=== PATIENT | female | born 1950 | race Caucasian/White ===

== ENCOUNTER → 2021-04-20 11:04 | Outpatient (BNVA) | payer MEDICARE, SELFPAY | PROVIDERS: PCP Internal Medicine; Visit Provider Surgery Vascular Surgery | DX: I71.4 Abdominal aortic aneurysm, without rupture (principal) | CPT/HCPCS: 99202 ==

== ENCOUNTER 2021-04-26 14:40 | Outpatient (REF) | payer MEDICARE, SELFPAY ==
[2021-04-26 15:39] LABS: Blood Urea Nitrogen 25 mg/dL (9-16); Estimated Glomerular Filt Rate 49
== END 2021-04-26 14:41 | disposition home or self-care (01) ==
LOC: HO.LAB 14:40
PROVIDERS: PCP Internal Medicine; Visit Provider Surgery Vascular Surgery
DX: I71.4 Abdominal aortic aneurysm, without rupture (principal)
CPT/HCPCS: 36415; 82565; 84520

== ENCOUNTER 2021-04-29 14:44 | Outpatient (REF) | payer MEDICARE, SELFPAY ==
--- NOTE | ~2021-04-29 | CT_ITS ---
EXAMINATION: CT ANGIOGRAM ABDOMEN AND PELVIS CLINICAL INFORMATION: AAA without rupture. COMPARISON: None TECHNIQUE: Multiple axial images were obtained through the abdomen and pelvis following the administration of 85 mL of Omnipaque 350 intravenous contrast. Additional 2-D coronal and sagittal reformatted images and axial 3-D maximum intensity projection MIP images are generated on the CT workstation. This CT examination was performed using dose optimization techniques as appropriate, variously including the following: *Automated exposure control *Adjustment of mA and/or kV according to patient size (this includes techniques or standardized protocols for targeted exams where dose is matched to indication/reason for exam; i.e. extremities or head) *Use of iterative reconstruction technique DLP: 256 mGy-cm FINDINGS: VASCULAR: Mild atherosclerotic plaquing present in the visualized distal descending thoracic aorta. There is an infrarenal abdominal aortic aneurysm present that ends at the iliac bifurcation. Maximal transverse dimension is 5.4 x 4.3 cm. Moderate eccentric plaque is present in the lumen. Bilateral short kissing iliac stents extend into the distal aorta. There is a segment of aorta measuring just over 1 cm below the renal arteries where there is no aortic aneurysm. The aneurysm begins just below this level with the portion containing eccentric thrombus beginning 2.7 cm inferior to the renal arteries. The kissing iliac stents are patent. The unstented distal common iliac arteries are patent. The iliac bifurcations are patent. Internal iliac arteries are patent. The external iliac arteries are free of disease. Minimal calcific plaque present in the common femoral arteries. Femoral bifurcations are widely patent with patent proximal profunda femoris and superficial femoral arteries. Celiac and SMA are both patent with mild ostial disease. The JAMIR is not patent but branches fill retrograde. There are single renal arteries bilaterally. There is mild disease at the right renal ostia. A severe stenosis is present at the origin of the left renal artery. NON-VASCULAR Lung Bases: The visualized lung bases are unremarkable. Liver, Gallbladder, and Biliary Tree: The liver is normal in size, shape, and attenuation. No focal hepatic lesion or biliary ductal dilatation is present. The gallbladder is unremarkable with no evidence of radiopaque gallstones, gallbladder wall thickening, or obvious pericholecystic inflammatory changes. Pancreas: Unremarkable. Spleen: Unremarkable. Adrenal Glands: Unremarkable. Kidneys and Ureters: The kidneys are normal in size, shape, and attenuation. Right-sided renal cysts are present, the largest of which measures 2 cm. Bilateral extrarenal pelves are present. No hydronephrosis, hydroureter, or calculi are seen. No perinephric stranding. Bladder: Empty but unremarkable. Gastrointestinal Tract: The small and large bowel is unremarkable aside from a few scattered colonic diverticula without diverticulitis. The appendix is unremarkable. Abdominal Wall: No significant hernia is appreciated. Lymph Nodes: No retroperitoneal lymphadenopathy. Pelvic Viscera: An anteverted uterus is present. An abnormal adnexal mass or free intraperitoneal fluid is not seen. Osseous Structures: Degenerative change is present in the spine. CT/CT angio abdomen pelvis IMPRESSION: 1. Infrarenal abdominal aortic aneurysm with maximal transverse dimension of 5.4 x 4.3 cm which contains thrombus. Bilateral kissing common iliac stents are patent. 2. Mild right renal artery stenosis and severe left renal artery stenosis. 3. Mild ostial celiac and SMA disease. 4. Nonvascular findings consist of right-sided renal cysts, a few colonic diverticula and degenerative changes in the spine.
[2021-04-29] MEDS: iohexoL 350 MG/ML 100 ML INFUS..BTL IV (16:04)
== END 2021-04-29 14:45 | disposition home or self-care (01) ==
LOC: HO.CT 14:44
PROVIDERS: PCP Internal Medicine; Visit Provider Surgery Vascular Surgery
DX: I71.4 Abdominal aortic aneurysm, without rupture (principal)
CPT/HCPCS: 74174; Q9967

== ENCOUNTER → 2021-05-13 13:57 | Outpatient (BNVA) | payer MEDICARE, SELFPAY | PROVIDERS: PCP Internal Medicine; Visit Provider Surgery Vascular Surgery | DX: I71.4 Abdominal aortic aneurysm, without rupture (principal); U07.0 Vaping-related disorder; F17.210 Nicotine dependence, cigarettes, uncomplicated; Z95.5 Presence of coronary angioplasty implant and graft | CPT/HCPCS: 99212 ==

== ENCOUNTER → 2021-05-17 14:02 | Outpatient (BNVA) | payer MEDICARE, SELFPAY | PROVIDERS: PCP Internal Medicine; Referring Provider Internal Medicine; Visit Provider Internal Medicine | DX: Z01.810 Encounter for preprocedural cardiovascular examination (principal); I71.4 Abdominal aortic aneurysm, without rupture; I25.10 Atherosclerotic heart disease of native coronary artery without angina pectoris | CPT/HCPCS: 93005; 99202 ==

== ENCOUNTER → 2021-05-24 07:33 | Outpatient (REF) | payer MEDICARE, SELFPAY ==
--- NOTE | ~2021-05-24 | NM_ITS ---
Lexiscan Myocardial perfusion study Indication: Preoperative cardiac evaluation Technique: The patient was brought in for a Lexiscan perfusion study on 05/24/2021 and was injected 0.4 mg of Lexiscan intravenously. Within a minute of this injection 25 mCi of sestamibi was given intravenously. Images were obtained using the SPECT gamma camera interlaced with the gating device. Images were obtained in supine position. Resting perfusion study was performed on 05/25/2021. Patient was administered 25 mCi of sestamibi intravenously at rest. Images were then obtained in supine position. Total DLP 87mGy-cm. Images were processed with the software and compared side to side in short axis, horizontal long axis and vertical long axis views. Findings: Raw acquisition was reviewed. The stress perfusion study showed no significant perfusion abnormality. Both uncorrected as well as CT attenuation corrected images were reviewed. The gated study shows normal LV systolic function with calculated LVEF of 71%. LV cavity is normal in size. The gated study shows normal wall thickening and contraction of segments. Resting study shows no significant perfusion abnormality. Gating at rest reveals normal wall motion with ejection fraction at > 70%. The findings are consistent with no reversible or fixed perfusion abnormality. NM/NM cardiolite stress test Impression: 1. Myocardial perfusion imaging study shows normal myocardial perfusion. No evidence of any ischemia or infarction. 2. Gated LVEF is >70% during stress and rest. 3. Transient ischemic dilatation not present. EKG component of the test reported separately.
--- NOTE | 2021-05-24 07:37 | CA_ITS ---
Transthoracic Echocardiogram Patient (Last, First, Middle): Sonam Hidalgo, Gender: Female Date of : 1950 Age: 70 Procedure Date: 05/24/2021 Procedure Type: Transthoracic Echocardiogram Location: OP Height: 160.02 cm Weight: 65.77 kg BSA: 1.69 m2 Heart Rate: bpm BP: 120 / 80 mmHg Lactation Specialist: Neymar MD: Christiano Adler MD Ticket Machine Operator: Noel Pantoja MD Symptoms: I25.10 - Atherosclerotic heart disease of [place] coronary... Study Quality: Fair ECG Rhythm: Sinus Conclusions: - 1. Normal LV systolic function with grade 1 diastolic dysfunction 2. Normal cardiac valvular Doppler with fibrocalcific changes noted at the base of the aortic leaflets 3. No gross pericardial effusion Findings Left Ventricle Normal left ventricular size, thickness, and systolic function. The visually estimated ejection fraction is between 60-65%. Spectral Doppler is indicative of an impaired relaxation filling pattern. E/E prime ratio is <8, consistent with normal filling pressures. Right Ventricle Normal right ventricular cavity size and systolic function. Atria The left atrium is normal in size. The right atrium is normal in size. Aortic Valve There is mild calcification of the aortic valve. There are fibrocalcifications on the aortic valve wall. There is no aortic valve stenosis. There is no aortic valve regurgitation. Mitral Valve Likely normal mitral valve structure and function. There is trace mitral valve regurgitation. There is no mitral valve stenosis. Pulmonic Valve The pulmonic valve was not well visualized. There is trace pulmonic valve regurgitation. Tricuspid Valve Likely normal tricuspid valve structure and function. Tricuspid regurgitation envelope is inadequate for calculation of right ventricular systolic pressure. Great Vessels All visible segments of the aorta are normal in size. The pulmonary artery was not well visualized. Venous The inferior vena cava is normal in size and collapses greater than 50% with inspiration. Pericardium/Pleural There is no evidence of pericardial effusion. Prior Study Comparison No prior study available for comparison. Measurements 2D Linear Measurements RVIDd: 2.50 RVIDd Index: 1.48 IVSd: 1.21 0.6-0.9/0.6-1.0 cm LVIDd: 2.85 3.9-5.3/4.2-5.9 cm LVIDd Index: 1.69 2.4-3.2/2.2-3.1 cm/m2 LVIDs: 1.95 2.0-3.6 cm LVPWd: 1.06 0.7-1.1 cm Ao Root: 2.60 2.1-3.5 cm LA Diam: 2.50 2.7-3.8/3.0-4.0 cm LAIDs Index: 1.48 1.5-2.3 cm/m2 LV Mass: 115.51 67-162/88-224 g LV Mass Index: 68.35 43-95/49-115 g/m2 LVOT Diam: 2.00 3.0+(-)1.3 cm 2D Systolic Function EF 4C: 67.30 >55% EF 2C: 58.70 >55% EF BiP: 64.30 >55% Mitral Valve MV Pk E: 0.45 MV PK A: 0.86 MV Decel Time: 243.00 E/A: 0.50 E'Lateral: 6.31 E'Medial: 5.22 E/E' Med: 8.60 E/E' Lat: 7.10 Aortic Valve AoV Pk Matthew: 1.31 AoV Mn Matthew: 0.92 AoV VTI: 0.20 AoV Pk Grad: 7.00 Aov Mn Grad: 4.00 JENIFFER Cont.VTI: 2.62 LVOT LVOT Pk Matthew: 0.89 LVOT Mn Matthew: 0.64 LVOT VTI: 0.17 LVOT Pk Grad: 3.00 LVOT Mn Grad: 2.00 LVOT Diam: 2.00 LVOT Area: 3.14 Diastolic Function MV Pk E: 0.45 MV Pk A: 0.86 E/A: 0.50 E'Medial: 5.22 E/E' Med: 8.60 E' Laterial: 6.31 E/E' Lat: 7.10 Right Ventricle TAPSE (mm): 21.00 TVS' Matthew: 10.00 Tricuspid Valve RA Press: 3.00 Great Vessels Aorta Ao Root-2D: 2.60 2.0-3.7 cm Ao Asc: 2.60 2.1-3.4 cm Ao Arch: 2.40 Updated in Other Vendor System with Status of Final Noel Pantoja MD electronically signed on 05/24/2021 12:36:26 PM with status of Final
--- NOTE | 2021-05-24 07:37 | CA_ITS ---
Acquisition Time: 2021-05-24 08:23:23 Total Exercise Time: 00:02:00 Test Indications: Screening for CAD Medications: CLOPIDOGREL ATORVASTATIN BENZAPRIL GABAPENTIN TRAMADOL CYCLOBENZAPRINE Protocol: LEXISCAN Max HR: 122 BPM 81% of Pred: 149 BPM Max BP: 136/086 mmHG Max Work Load: 1.0 METS Pharmacological stress test with Lexiscan injection, while sitting and kicking her legs, without anginal symptoms, without arrythmia, with normotensive response to injection, with nondiagnostic EKG for ischemia. In recovery she had sinus tachycardia that was treated with Aminophylline 75mg IVP to reverse Lexiscan with improvement in heart rate. Nuclear images pending. Test reviewed with Dr Pantoja. Referred By: Christiano Adler Overread By: MARIA D BUNDY
== END ==
LOC: HO.CARD 07:33
PROVIDERS: Visit Provider Internal Medicine
DX: Z01.810 Encounter for preprocedural cardiovascular examination (principal); I71.4 Abdominal aortic aneurysm, without rupture; I25.10 Atherosclerotic heart disease of native coronary artery without angina pectoris
CPT/HCPCS: 78452; 93017; 93306; A9500; J0280; J2785

== ENCOUNTER → 2021-06-09 08:38 | Outpatient (BNVA) | payer MEDICARE, SELFPAY | PROVIDERS: PCP Internal Medicine; Referring Provider Internal Medicine; Visit Provider Internal Medicine | DX: Z01.810 Encounter for preprocedural cardiovascular examination (principal); I71.4 Abdominal aortic aneurysm, without rupture; I10 Essential (primary) hypertension | CPT/HCPCS: 99212 ==

== ENCOUNTER 2021-06-14 06:15 | Inpatient (IN) | payer MEDICARE, SELFPAY ==
--- NOTE | 2021-06-07 11:56 | P.CONAN_ITS ---
Documented by User: Yesy Castro NP 06/11/21 09:36 HPI - Anesthesia Eval Consult details Narrative: 70yo F for Aortic Endovascular Repair Cardiac cleared at [facility] Chronic opioids [facility] Active Problems Active Problems: All Active Problems (Updated 05/17/21 @ 14:25 by Christiano Adler MD) Preoperative cardiovascular examination (Acute) AAA (abdominal aortic aneurysm) without rupture (Acute) Past Medical History Medical History Arthritis Back pain Hx of renal calculi Mild heartburn Subclavian artery stenosis, left Family History Family History Father No problems noted. Mother No problems noted. Family history of problems with anesthesia: No Surgical History Surgical History H/O tubal ligation Hx of colonoscopy Hx of lithotripsy Status post insertion of iliac artery stent History of Problems with Anesthesia: No Social History Social History Household Members Other:: roger 22 yrs old Are you a primary career placement services counselor to a significant other at home: No Do you presently have visiting nurse or other home services: No Patient Tobacco Use Status: Current everyday Tobacco user Tobacco use type: Smokeless Tobacco Cigarettes Per Day: 4 e-Cigarette/Vaping Use: Currently Using Patient Interested in Nicotine Replacement: Yes Use of substances other than those prescribed or required for medical reasons: No Have you been hit, kicked, punched, or otherwise hurt by someone within the past year? If so, by whom?: No Spiritual Healthcare Practices: none Synagogue Healthcare Practices: none Cultural Healthcare Practices: none Are you DNR?: No Advance Directives: No Advance Directives Information Provided: No Advance Directives on File: No Recently lost weight without trying: No Nutrition Risks: No Nutritional Risk Narrative Narrative: No recent illness No CP/SOB with grocery shopping. Limited activity d/t back pain Meds Allergies Allergy/AdvReac Type Severity Reaction Status Date / Time No Known Allergies Allergy Verified 06/14/21 06:23 Home Medications Medication Instructions Recorded Confirmed Last Taken Type atorvastatin 20 mg tablet 20 mg PO BEDTIME 04/20/21 06/09/21 Unknown History benazepril 10 mg tablet 10 mg PO BEDTIME 04/20/21 06/09/21 Unknown History clopidogrel 75 mg tablet 75 mg PO BEDTIME 04/20/21 06/09/21 06/13/21 22:00 History tramadol 50 mg tablet 100 mg PO Q6H PRN 04/20/21 06/09/21 06/14/21 05:00 History Exam Exam Date and Time: June 07, 2021 1156 Height,Weight and Vital Signs: Pulse Resp BP Pulse Ox 98 16 118/71 97 06/07/21 12:06/07/21 12:06/07/21 12:06/07/21 12:09 Narrative Narrative: EKG 04/2021 sinus rhythm at 89/Min; leftward axis; left atrial enlargement. ECHO 04/2021 Conclusions: - 1. Normal LV systolic function with grade 1 diastolic? dysfunction? 2. Normal cardiac valvular Doppler with fibrocalcific changes? ? noted at the base of the aortic leaflets ? 3. No gross pericardial effusion ? NM cardiolite stress test 04/2021 Impression: ? 1.? Myocardial perfusion imaging study shows normal myocardial perfusion. No evidence of any ischemia or infarction. 2.? Gated LVEF is >70% during stress and rest. 3. Transient ischemic dilatation not present. ? EKG component of the test reported separately.(Nondiagnostic) Airway Mallampati Class: II TM Dist: >3cm Neck ROM: Full Denture: Upper and Lower (Doesnt wear) Heart: RRR Lungs: CTAB Assessment and Plan Assessment Anesthesia Assessment: Anesthesia Plan Discussed, Smoking Cess. Discussed and PAT Visit Final Anesthetic Review Family History of Problems with Anesthesia: No History of Problems with Anesthesia: No Documented by User: Lucia Hernandez MD 06/14/21 10:20 [facility] Past Medical History Medical History Arthritis Back pain Hx of renal calculi Mild heartburn Subclavian artery stenosis, left Family History Family History Father No problems noted. Mother No problems noted. Surgical History Surgical History H/O tubal ligation Hx of colonoscopy Hx of lithotripsy Status post insertion of iliac artery stent Social History Social History Household Members Other:: roger 22 yrs old Are you a primary career placement services counselor to a significant other at home: No Do you presently have visiting nurse or other home services: No Patient Tobacco Use Status: Current everyday Tobacco user Tobacco use type: Smokeless Tobacco Cigarettes Per Day: 4 e-Cigarette/Vaping Use: Currently Using Patient Interested in Nicotine Replacement: Yes Use of substances other than those prescribed or required for medical reasons: No Have you been hit, kicked, punched, or otherwise hurt by someone within the past year? If so, by whom?: No Spiritual Healthcare Practices: none Synagogue Healthcare Practices: none Cultural Healthcare Practices: none Are you DNR?: No Advance Directives: No Advance Directives Information Provided: No Advance Directives on File: No Recently lost weight without trying: No Nutrition Risks: No Nutritional Risk Meds Allergies Allergy/AdvReac Type Severity Reaction Status Date / Time No Known Allergies Allergy Verified 06/14/21 06:23 Home Medications Medication Instructions Recorded Confirmed Last Taken Type atorvastatin 20 mg tablet 20 mg PO BEDTIME 04/20/21 06/09/21 Unknown History benazepril 10 mg tablet 10 mg PO BEDTIME 04/20/21 06/09/21 Unknown History clopidogrel 75 mg tablet 75 mg PO BEDTIME 04/20/21 06/09/21 06/13/21 22:00 History tramadol 50 mg tablet 100 mg PO Q6H PRN 04/20/21 06/09/21 06/14/21 05:00 History Exam Height,Weight and Vital Signs: Height 5 ft 4 in Weight 64.41 kg Pulse Resp BP Pulse Ox 98 16 118/71 97 06/07/21 12:09 06/07/21 12:09 06/07/21 12:09 06/07/21 12:09 Pertinent Lab Results Pertinent Lab Results: Lab Results 06/07/21 06/07/21 06/07/21 Range/Units 13:31 13:31 13:31 WBC 9.0 (4.8-10.8) X10*3/uL RBC 4.73 (4.20-5.50) X10*6/uL Hgb 14.9 (12.0-16.0) g/dl Hct 45.2 (37-47) % MCV 95.6 (80-98) fL MCH 31.5 (27.0-33.0) pg MCHC 33.0 (31.0-35.0) g/dl RDW 13.5 (11.0-16.0) % Plt Count 378 (160-400) X10*3/uL MPV 10.0 (9.4-12.3) fL Absolute Nucleated RBC 0.000 (0.0-0.012) X10*3/uL Nucleated RBC % (auto) 0.0 (0.0-0.2) /100WBC PT (9.9-13.0) SEC INR (0.9-1.1) APTT (24.1-38.0) SEC Sodium 143 (135-145) mmol/L Potassium 3.9 (3.3-5.1) mmol/L Chloride 106 (96-108) mmol/L Carbon Dioxide 27 (22-29) mmol/L Anion Gap 14 (12-20) BUN 17 H (9-16) mg/dL Creatinine 1.29 (0.5-1.4) mg/dL Estim Creat Clear Calc 34.5 Estimated GFR 41 Random Glucose 140 H (60-115) mg/dL Calcium 10.3 H (8.4-10.2) mg/dL COVID-19 (JASON) (Negative) COVID-19 Clin Com Blood Type O Positive Antibody Screen NEGATIVE 06/14/21 06/14/21 06/14/21 Range/Units 06:20 06:25 06:25 WBC 8.9 (4.8-10.8) X10*3/uL RBC 4.55 (4.20-5.50) X10*6/uL Hgb 14.4 (12.0-16.0) g/dl Hct 43.7 (37-47) % MCV 96.0 (80-98) fL MCH 31.6 (27.0-33.0) pg MCHC 33.0 (31.0-35.0) g/dl RDW 13.4 (11.0-16.0) % Plt Count 341 (160-400) X10*3/uL MPV 10.3 (9.4-12.3) fL Absolute Nucleated RBC 0.000 (0.0-0.012) X10*3/uL Nucleated RBC % (auto) 0.0 (0.0-0.2) /100WBC PT 11.4 (9.9-13.0) SEC INR 1.0 (0.9-1.1) APTT 32.4 (24.1-38.0) SEC Sodium (135-145) mmol/L Potassium (3.3-5.1) mmol/L Chloride (96-108) mmol/L Carbon Dioxide (22-29) mmol/L Anion Gap (12-20) BUN (9-16) mg/dL Creatinine (0.5-1.4) mg/dL Estim Creat Clear Calc Estimated GFR Random Glucose (60-115) mg/dL Calcium (8.4-10.2) mg/dL COVID-19 (JASON) Negative (Negative) COVID-19 Clin Com See Note Blood Type Antibody Screen 06/14/21 Range/Units 06:25 WBC (4.8-10.8) X10*3/uL RBC (4.20-5.50) X10*6/uL Hgb (12.0-16.0) g/dl Hct (37-47) % MCV (80-98) fL MCH (27.0-33.0) pg MCHC (31.0-35.0) g/dl RDW (11.0-16.0) % Plt Count (160-400) X10*3/uL MPV (9.4-12.3) fL Absolute Nucleated RBC (0.0-0.012) X10*3/uL Nucleated RBC % (auto) (0.0-0.2) /100WBC PT (9.9-13.0) SEC INR (0.9-1.1) APTT (24.1-38.0) SEC Sodium 143 (135-145) mmol/L Potassium 4.0 (3.3-5.1) mmol/L Chloride 108 (96-108) mmol/L Carbon Dioxide 25 (22-29) mmol/L Anion Gap 14 (12-20) BUN 10 (9-16) mg/dL Creatinine 1.00 (0.5-1.4) mg/dL Estim Creat Clear Calc 44.5 Estimated GFR 55 Random Glucose 112 (60-115) mg/dL Calcium 9.8 (8.4-10.2) mg/dL COVID-19 (JASON) (Negative) COVID-19 Clin Com Blood Type Antibody Screen Assessment and Plan Final Anesthetic Review NPO: Yes ASA Class: III Final Preanesthetic Review: No Changes in Pt Med Stat, Meds/Allgs Chart Reviewed, Consent Obtained/Reviewed and Anes Risks/Benef Reviewed Patient Risk: Intermediate Procedure Risk: Intermediate Assessment/Block/Sedation in SS: Assess/Block/Sedation-SS Anesthetic Plan Anesthetic Plan: GA Disposition: Standard PACU and Inp. Admit - ICU
[2021-06-07 12:09] VITALS: BP 118/71; PULSE 98; RESP 16; O2SAT 97; BMI 24.3
[2021-06-07 14:07] LABS: Hematocrit 45.2 % (37-47); Hemoglobin 14.9 g/dl (12.0-16.0); Mean Corpuscular Hemoglobin 31.5 pg (27.0-33.0); Mean Corpuscular Volume 95.6 fL (80-98); Platelet Count 378 X10*3/uL (160-400); Red Blood Count 4.73 X10*6/uL (4.20-5.50); Red Cell Distribution Width 13.5 % (11.0-16.0)
[2021-06-07 14:24] LABS: Anion Gap 14 (12-20); Blood Urea Nitrogen 17 mg/dL (9-16); Calcium 10.3 mg/dL (8.4-10.2); Carbon Dioxide 27 mmol/L (22-29); Chloride 106 mmol/L (96-108); Creatinine Clr Calc Pharmacy 34.5; Estimated Glomerular Filt Rate 41; Glucose Random 140 mg/dL (60-115); Potassium 3.9 mmol/L (3.3-5.1); Sodium 143 mmol/L (135-145)
[2021-06-14] VITALS (20 sets, daily range): BP systolic 91–162; BP diastolic 45–97; PULSE 67–97; RESP 9–18; TEMP 35.9–37.1; O2SAT 90–100
--- NOTE | ~2021-06-14 | FL_ITS ---
EXAMINATION: XR FLUOROSCOPY WITH IMAGES CLINICAL INFORMATION: Abdominal aortic aneurysm. COMPARISON: Previous CTA of the abdomen and pelvis April 2021. TECHNIQUE: Fluoroscopy performed by Dr. Beltran. Fluoroscopy time: 34 minutes DAP: 79 mGycm2 Images: 34 FINDINGS: Images demonstrate placement of aortic and biiliac stent grafts. FL/FL guidance in OR IMPRESSION: Intraoperative fluoroscopy guidance for aortobiiliac stent graft placement.
[2021-06-14 06:31] LABS: Hematocrit 43.7 % (37-47); Hemoglobin 14.4 g/dl (12.0-16.0); Mean Corpuscular Hemoglobin 31.6 pg (27.0-33.0); Mean Platelet Volume 10.3 fL (9.4-12.3); Platelet Count 341 X10*3/uL (160-400); Red Blood Count 4.55 X10*6/uL (4.20-5.50); Red Cell Distribution Width 13.4 % (11.0-16.0); White Blood Count 8.9 X10*3/uL (4.8-10.8)
[2021-06-14 06:38] LABS: Prothrombin Time 11.4 SEC (9.9-13.0)
[2021-06-14 06:41] LABS: Partial Thromboplastin Time 32.4 SEC (24.1-38.0)
[2021-06-14 06:46] LABS: Anion Gap 14 (12-20); Blood Urea Nitrogen 10 mg/dL (9-16); Calcium 9.8 mg/dL (8.4-10.2); Carbon Dioxide 25 mmol/L (22-29); Chloride 108 mmol/L (96-108); Creatinine Clr Calc Pharmacy 44.5; Estimated Glomerular Filt Rate 55; Glucose Random 112 mg/dL (60-115); Sodium 143 mmol/L (135-145)
[2021-06-14 06:47] LABS: COVID-19 Test Negative (Negative)
[2021-06-14] MEDS: Lactated Ringers 1,000 ML 100 ML IVCONT (06:48)
--- NOTE | 2021-06-14 07:36 | MHC.SHP ---
Pre-Procedural Eval Section A Date of Service: 06/14/21 The patient is an INPATIENT: No The History & Physical has been completed within 30 days and I have reviewed it.: Yes Section B Chief Complaint: Post op Allergies: Allergies Allergy/AdvReac Type Severity Reaction Status Date / Time No Known Allergies Allergy Verified 06/14/21 06:23 Plan I have reviewed the history and physical and performed a pertinent physical examination on my patient. No changes have occurred unless specified.
[2021-06-14] MEDS: ceFAZolin Sodium/Dextrose,Iso 2 GM/50 ML PIGGYBACK IV ×2 (08:08→14:02)
[2021-06-14] MEDS: 0.9 % Sodium Chloride 1,000 ML 80 ML IVCONT ×2 (13:49→23:15)
--- NOTE | 2021-06-14 14:15 | W.PM.OPN ---
Operative Note Operative Note Date of Service: 06/14/21 Narrative: Operative note by [facility] Preoperative diagnosis: Abdominal aortic aneurysm Postoperative diagnosis: Same Procedure:1. Ultrasound-guided right common femoral access 2. Left common femoral cutdown 3. Plasty of bilateral iliac arteries 4. Repair of abdominal aortic aneurysm with Endologix AFX graft 5. StarClose closure device Surgeon:Bay Beltran M.D. Java Application Developer: Jean Carlos Cabrera MD Anesthesia: General Specimens: None Drains: None Estimated blood loss: 300 mL with 225 given back in Cell Saver Indications: 70-year-old female with a 5.2 cm abdominal aortic aneurysm was confirmed on CT scan. Of note she has prior bilateral iliac stent placement. She wished to proceed with endovascular repair of this abdominal aortic aneurysm. The patient has signed the informed consent after reviewing risks, complications, benefits, and alternatives previously discussed with the patient. The patient was given the opportunity to ask any additional questions or voice any concerns. All questions were answered to the patient's satisfaction. Procedure in detail: Patient was brought to the operating room prior to which a time-out was called for patient identification and site verification. Once at antibiotics and general anesthesia was induced. We 1st started with ultrasound guidance of the right common femoral artery. This was accessed in a standard technique with needle puncture an subsequent Bentson wire. We then inserted a 7 Lebanese sheath. We then turned our attention to the left side where a cutdown was performed once again using standard technique. We isolated the common femoral artery with silastic loops. We inserted a needle Bentson wire and subsequently a 7 Lebanese sheath. At this time 5000 units of systemic heparin was administered. Angiogram was performed to measure the vessel length and characterize the anatomy and its topography. Both sides were pre-dilated using a 3DR [employer] 8 x 40 stiff balloon. We had to pre dilate both iliac arteries where there were prior stents. Once this was accomplished we exchanged the left side over an a angle glide cath to a Lunderquist wire. We loaded the FELICIANO 25-70/I16-30 AFX2 bifurcated device onto the stiff wire and advanced the contralateral wire through the 19 Lebanese OD affects introducer sheath using a guidewire. Contralateral wire was snared and pulled out the contra side which was the right side. FX 2 bifurcated device was then transferred into the FX introducer sheath and advanced under fluoro guidance until the distal limbs were above the aortic bifurcation releasing the limbs of the graft. We pulled down the entire system down to the aortic bifurcation. We deployed the main body of the graft and pulling the control cord handle. We deployed the contralateral limb by pulling the yellow limb cover then advancing a pigtail over the contra wire until the tip was in contact with the wire lock. We held the pigtail catheter and placed and pull the Contra wire to release it from the wire lock. We deployed the its he limb by pinning the inner core and retracting the a FX introducer sheath. We advanced and deployed a super renal extension a 28-28/[id number] endograft and performed to visualize the renal arteries. Once this was all accomplished we then plasty did bilateral iliac arteries with an 8 x 40 balloon. Performed a final angiogram remove catheter wire sheath. Right side was closed with a StarClose closure device. Left side was closed using 6 0 Prolene suture in a running manner. We then closed the cutdown with 2 0 poly Sorb then 3-0 poly Sorb and finally skin with a 4-0 Monocryl. Dermabond was used as dressing. At the end of the case sponge instrument counts were correct. Patient had bilateral DP signals at the conclusion of the case. Interpretation of films: 1. Initial angio demonstrated the abdominal aortic aneurysm with bilateral iliac stents. 2. Conclusion angiogram demonstrated appropriate placement of endograft. No evidence of significant endoleaks, type I or type II . Good flow through bilateral iliac arteries. Conclusion: Successful placement of Endologix AFX2 aortic endograft. This note is constructed using voice recognition software. While every effort has been made to ensure accuracy, quality analyst/technical writer errors may have been included. Thank you for allowing me to participate in the care of your patient. Yours sincerely, Bay Beltran MD, FACS, R.P.V.I.
--- NOTE | 2021-06-14 14:24 | P.HPCC_ITS ---
History of Present Illness Date of Service: 06/14/21 Attending physician on admission: Bay Beltran Mrs. Hidalgo was admitted to the ICU this afternoon after an elective endograft abdominal aortic aneurysm repair by Dr. Beltran. The patient is a 70-year-old woman with a history of smoking and peripheral vascular disease.? She did stop smoking.? She has a history of a subclavian stent many years ago, and more recently bilateral iliac artery stents by Dr. Beltran a few years ago.? She has not had any claudication. She had an abdominal CT as part of a workup for back pain recently, which led to the diagnosis of an abdominal aortic aneurysm.? That was confirmed by an aortogram, which also showed mild right renal artery stenosis, and severe left renal artery stenosis.? She also has mild ostial celiac and SMA disease.? The abdominal aortic aneurysm measured 5.4 x 4.3 cm, containing thrombus.? The common iliac artery stents were patent. Preop workup included: Echo:? Showed normal LV systolic function with grade 1 diastolic dysfunction; normal right ventricular cavity size and function; normal biatrial size; normal valvular Dopplers; and normal IVC with normal inspiratory collapse. Pharmacological stress test was unremarkable. Nuclear medicine stress test showed no reversible or fixed perfusion abnormalities. INTRAOP:? Unremarkable GETA and unremarkable surgical course.? Cutdown on left groin, needlestick on right side.? Minimal EBL, retransfused with cell saver.? Extubated at end, recovery room, then admitted to ICU. On exam in the ICU, the patient is fully awake, breathing and talking easily.? Heart rate is 78, blood pressure is 115/61, sat is 96-98% on room air, and she is normothermic.? No jugular venous distention with the head of the bed at 30-40 degrees.? She has no peripheral edema.? I examined both groins with Dr. Beltran.? The left side has about a 1.5 x 4? not prominent hematoma.? The area was m arked.? The right groin has almost nothing palpable.? Pulses are palpable in both feet.? The left foot is slightly warmer than the right. LABORATORY DATA:? Preop labs from this morning as noted below.? BUN and creatinine were 10/1.0. IMPRESSION: ?70-year-old woman, status post successful elective endograft abdominal aortic aneurysm repair. Admit for overnight hemodynamic and vascular monitoring.? Follow-up per Dr. Beltran. FORMERLY [facility] Past Medical History Medical History Arthritis Back pain Hx of renal calculi Mild heartburn Subclavian artery stenosis, left Family History Family History Father No problems noted. Mother No problems noted. Surgical History Surgical History H/O tubal ligation Hx of colonoscopy Hx of lithotripsy Status post insertion of iliac artery stent Social History Social History Household Members: Children Household Members Other:: roger 22 yrs old Housing: House Are you a primary laboratory animal care veterinarian to a significant other at home: No Do you presently have visiting nurse or other home services: No Patient Tobacco Use Status: Current everyday Tobacco user Tobacco use type: Smokeless Tobacco Cigarettes Per Day: 4 e-Cigarette/Vaping Use: Currently Using Patient Interested in Nicotine Replacement: Yes Use of substances other than those prescribed or required for medical reasons: No Have you been hit, kicked, punched, or otherwise hurt by someone within the past year? If so, by whom?: No Do you feel safe in your current relationship?: No Current Relationship Is there a partner from a previous relationship who is making you feel unsafe now?: No Are you made to feel afraid or neglected: No Spiritual Healthcare Practices: none Cheondoism Healthcare Practices: none Cultural Healthcare Practices: none Are you DNR?: No Advance Directives: No Advance Directives Information Provided: No Advance Directives on File: No Do you have thoughts of harming others: None Recently lost weight without trying: No Nutrition Risks: No Nutritional Risk Meds Allergies Allergy/AdvReac Type Severity Reaction Status Date / Time No Known Allergies Allergy Verified 06/14/21 06:23 Active Medications: Current Medications Acetaminophen (Acetaminophen 325 Mg Tablet) 650 mg PO Q6H PRN PRN Reason: Pain, Mild (Pain Scale 1-3) Atorvastatin Calcium (Atorvastatin Calcium 20 Mg Tablet) 20 mg PO BEDTIME TIFFANY Clopidogrel Bisulfate (Clopidogrel Bisulfate 75 Mg Tablet) 75 mg PO BEDTIME TIFFANY Sodium Chloride (Ns) 1,000 mls @ 80 mls/hr IVCONT .[id number] TIFFANY Last Admin: 06/14/21 13:49 Dose: 80 mls/hr Documented by: Cefazolin Sodium/Dextrose (Ancef) 2 gm in 50 mls @ 100 mls/hr IV POSTOP@1400 ONE Stop: 06/14/21 14:29 Last Admin: 06/14/21 14:02 Dose: 100 mls/hr Documented by: Morphine Sulfate (Morphine Sulfate 2 Mg/Ml Cartridge) 2 mg IVPUSH Q4H PRN; Protocol PRN Reason: Pain, Severe (Pain Scale 7-10) Oxycodone HCl (Oxycodone Hcl Immed Release 5 Mg Tablet) 5 mg PO Q4H PRN PRN Reason: Pain, Moderate (Pain Scale 4-6 Sodium Chloride (0.9 % Sodium Chloride Flush 3 Ml Syringe) 3 ml IVFLUSH QSHIFT TIFFANY Tramadol HCl (Tramadol Hcl 50 Mg Tablet) 100 mg PO Q6H PRN PRN Reason: Back Pain Home Medications Medication Instructions Recorded Confirmed Last Taken Type atorvastatin 20 mg tablet 20 mg PO BEDTIME 04/20/21 06/09/21 Unknown History benazepril 10 mg tablet 10 mg PO BEDTIME 04/20/21 06/09/21 Unknown History clopidogrel 75 mg tablet 75 mg PO BEDTIME 04/20/21 06/09/21 06/13/21 22:00 History tramadol 50 mg tablet 100 mg PO Q6H PRN 04/20/21 06/09/21 06/14/21 05:00 History Physical Exam Vital Signs: Vital Signs: Last Vital Signs Temp 97.3 F 06/14/21 11:51 Pulse 78 06/14/21 14:00 Resp 9 L 06/14/21 14:00 BP 115/61 06/14/21 14:00 Pulse Ox 90 L 06/14/21 14:00 Body Mass Index 24.3 Results Labs CBC and Chem 7: 06/14/21 06:25 06/14/21 06:25 Labs: Laboratory Results - last 24 hr 06/14/21 06/14/21 06/14/21 06:20 06:25 06:25 MCV 96.0 MCH 31.6 MCHC 33.0 RDW 13.4 Plt Count 341 MPV 10.3 Absolute Nucleated RBC 0.000 Nucleated RBC % (auto) 0.0 PT 11.4 INR 1.0 APTT 32.4 Anion Gap Estim Creat Clear Calc Estimated GFR Random Glucose Calcium COVID-19 (JASON) Negative COVID-19 Clin Com See Note 06/14/21 06:25 MCV MCH MCHC RDW Plt Count MPV Absolute Nucleated RBC Nucleated RBC % (auto) PT INR APTT Anion Gap 14 Estim Creat Clear Calc 44.5 Estimated GFR 55 Random Glucose 112 Calcium 9.8 COVID-19 (JASON) COVID-19 Clin Com
[2021-06-14] MEDS: 0.9 % Sodium Chloride Flush 3 ML SYRINGE IVFLUSH (17:00)
[2021-06-14] MEDS: Atorvastatin Calcium 20 MG TABLET PO (20:13)
[2021-06-14] MEDS: traMADoL HCL 50 MG TABLET 100 MG PO (20:14)
[2021-06-14] MEDS: Clopidogrel Bisulfate 75 MG TABLET PO (20:14)
[2021-06-15] VITALS (14 sets, daily range): BP systolic 94–123; BP diastolic 46–66; PULSE 68–92; RESP 12–16; TEMP 36.3–37.2; O2SAT 91–99; BMI 24.2
[2021-06-15 05:40] LABS: MANUAL DIFF FLAG NO
[2021-06-15 05:43] LABS: Basophils Percent Auto 0.1 % (0-2); Hematocrit 30.1 % (37-47); Imm Gran Abs Auto 0.03 X10*3/uL (0.00-0.03); Imm Gran Pct Auto 0.3 % (0.0-0.4); Lymphocytes Absolute Auto 0.9 X10*3/uL (1.2-4.9); Lymphocytes Percent Auto 7.7 % (20-40); Mean Corpuscular HGB Conc 33.2 g/dl (31.0-35.0); Mean Corpuscular Hemoglobin 31.9 pg (27.0-33.0); Mean Corpuscular Volume 96.2 fL (80-98); Mean Platelet Volume 10.6 fL (9.4-12.3); Monocytes Absolute Auto 0.8 X10*3/uL (0.1-1.2); Monocytes Percent Auto 6.9 % (2-11); Neutrophils Absolute Auto 9.9 X10*3/uL (2.0-8.3); Platelet Count 232 X10*3/uL (160-400); Red Blood Count 3.13 X10*6/uL (4.20-5.50); Red Cell Distribution Width 13.7 % (11.0-16.0); White Blood Count 11.6 X10*3/uL (4.8-10.8)
[2021-06-15 06:06] LABS: Anion Gap 10 (12-20); Blood Urea Nitrogen 17 mg/dL (9-16); Calcium 8.6 mg/dL (8.4-10.2); Carbon Dioxide 25 mmol/L (22-29); Chloride 111 mmol/L (96-108); Creatinine Clr Calc Pharmacy 46.8; Estimated Glomerular Filt Rate 58; Glucose Random 139 mg/dL (60-115); Potassium 4.3 mmol/L (3.3-5.1); Sodium 142 mmol/L (135-145)
[2021-06-15] MEDS: 0.9 % Sodium Chloride Flush 3 ML SYRINGE IVFLUSH (07:39)
--- NOTE | 2021-06-15 10:02 | MHC.CM.PN ---
Met with pt to discuss d/c planning: pt resides with her granddtr who assists her with ADL's and transportation. Pt has no services and states she is fairly independent with most care needs. Surgical site is KRISTAN, well approximated and shows no signs of complications. Pt declines VNA services at this time and will f/u with MD / surgeon as an outpt. Family to transport home: HCP copy requested, IMM completed.
--- NOTE | 2021-06-15 10:41 | HO.POSTANES ---
Post Anesthesia Evaluation Post Anesthesia Evaluation Vital Signs: Vital Signs Temp Pulse Resp BP Pulse Ox 06/15/21 10:00 89 15 103/49 L 94 06/15/21 09:00 72 13 110/50 L 99 06/15/21 08:00 97.3 F 73 13 118/50 L 92 06/15/21 07:00 68 12 99/46 L 93 06/15/21 06:00 72 12 98/50 L 94 06/15/21 05:00 75 12 96/52 L 92 06/15/21 04:00 80 13 111/55 L 94 06/15/21 03:00 79 13 118/54 L 94 06/15/21 02:00 83 16 94/52 L 92 06/15/21 01:00 77 14 101/53 L 92 06/15/21 00:00 73 13 112/51 L 97 06/14/21 23:18 98.7 F 94 06/14/21 23:00 77 12 91/45 L 94 Anesthesia: General Endotracheal-GETA Mental Status: Awake Pain Control: Satisfactory Nausea/Vomiting: None Hydration: Adequate Anesthesia-Related Issues: No Anes. Related Issues
--- NOTE | 2021-06-15 13:00 | PM.DS ---
DS: Providers Provider Date of Service: 06/15/21 Date of admission: 06/14/21 06:15 Primary care physician: Deven Salazar MD DS: Summary Hospital Course Hospital Course: Patient was admitted on 06/14/2021 and underwent elective endovascular aortic aneurysm repair. of note she had prior iliac stents. She underwent repair with an Endologix AFX2 device. She had an excellent result. She was observed in our ICU overnight. Postop day 1 she was tolerating a diet voiding freely, ambulating and had minimal pain. She was subsequently discharged. Time Spent with Patient Time attestation: Total time spent providing and/or coordinating discharge services: Discharge coordination time: Greater than 30 minutes Quality: Stroke Does the patient have a stroke diagnosis?: No Physical Exam Vital Signs: Vital Signs: Last Vital Signs Temp 99.0 F 06/15/21 12:00 Pulse 92 06/15/21 12:00 Resp 16 06/15/21 12:00 BP 123/66 06/15/21 12:00 Pulse Ox 92 06/15/21 12:00 Oxygen Flow Rate 2 06/14/21 23:18 Body Mass Index 24.2 DS: Data Data Completed and Pending Completed studies during hospitalization [Text1]: Pending at discharge 06/14/21 10:14 Surgical [PTH] Routine Labs on day of discharge: Laboratory Results - last 24 hr 06/15/21 06/15/21 05:12 05:12 WBC 11.6 H RBC 3.13 L D Hgb 10.0 L D Hct 30.1 L D MCV 96.2 MCH 31.9 MCHC 33.2 RDW 13.7 Plt Count 232 D MPV 10.6 Immature Gran % (Auto) 0.3 Neut % (Auto) 85.0 H Lymph % (Auto) 7.7 L Finney % (Auto) 6.9 Eos % (Auto) 0.0 Baso % (Auto) 0.1 Lymph # (Auto) 0.9 L Finney # (Auto) 0.8 Eos # (Auto) 0.0 Baso # (Auto) 0.0 Abs Immat Gran (auto) 0.03 Absolute Neuts (auto) 9.9 H Absolute Nucleated RBC 0.000 Nucleated RBC % (auto) 0.0 Sodium 142 Potassium 4.3 Chloride 111 H Carbon Dioxide 25 Anion Gap 10 L BUN 17 H D Creatinine 0.95 Estim Creat Clear Calc 46.8 Estimated GFR 58 Random Glucose 139 H Calcium 8.6 D Discharge Plan Discharge Patient Disposition: Home, Self-Care Discharge Diagnosis: Abdominal aortic aneurysm Referrals: Deven Salazar MD [Primary Care Provider] - 1 Week Discharge Medications: New oxycodone-acetaminophen [Percocet] 5-325 mg tablet 1 tab PO Q6H PRN (Reason: pain) Qty: 14 RF: 0 Continued atorvastatin 20 mg tablet 20 mg PO BEDTIME RF: 0 tramadol 50 mg tablet 100 mg PO Q6H PRN (Reason: Back Pain) RF: 0 benazepril 10 mg tablet 10 mg PO BEDTIME RF: 0 clopidogrel 75 mg tablet 75 mg PO BEDTIME RF: 0 Discharge Orders: Discharge Order (Routine); Ordered 06/15/21 Ordered By: Bay Beltran Diet: advance to usual diet Activity on Discharge: As tolerated Stand Alone Forms: Patient Portal Discharge page Activity Restrictions/Additional Instructions: Skin glue was used on your incisions and you may shower as early as tomorrow. Take it easy today and you may ambulate around the house. Within 24 hours you can resume normal activity You may climb a flight of stairs as tolerated Do not lift anything heavier than a gallon of milk for [address] Beltran in follow-up in approximately 2 weeks time. You should already have an appointment if not please call my office at [phone] Please see above for any change in medications If you notice excessive bleeding from the groin please immediately call my office or return to the emergency room. Care Plan Goals: Prevent aortic rupture Health Concerns: Abdominal aortic aneurysm Plan of Treatment: Status post repair and will require routine follow-up Assessment: Abdominal aortic aneurysm
--- NOTE | 2021-06-15 13:51 | MHC.CM.PN ---
Pt to be discharged to home with outpt followup - pt will call her granddtr or son for transportation home: No further services required
== END 2021-06-15 13:51 | disposition home or self-care (01) | DRG 269 ==
LOC: HO.SSSA 06:16 → HO.ICU 11:09
PROVIDERS: Nurse Practitioner; Admitting Provider Surgery Vascular Surgery; PCP Internal Medicine; Visit Provider Surgery Vascular Surgery
PROC: 04V03ZZ Restriction of Abdominal Aorta, Percutaneous Approach (ICD-10-PCS; principal; 2021-06-14 07:30)
DX: I71.4 Abdominal aortic aneurysm, without rupture (principal); Z87.442 Personal history of urinary calculi; Z20.822 Contact with and (suspected) exposure to COVID-19; F17.210 Nicotine dependence, cigarettes, uncomplicated; Z71.6 Tobacco abuse counseling; Z79.02 Long term (current) use of antithrombotics/antiplatelets; Z79.899 Other long term (current) drug therapy
CPT/HCPCS: 36415; 80048; 85025; 85027; 85610; 85730; 86850; 86900; 86901; 87635; 88305; C1768; C1769; J0690; J1100; J1170; J2250; J2370; J2405; J3010; Q9967

== ENCOUNTER → 2021-06-29 13:08 | Outpatient (BNVA) | payer MEDICARE, SELFPAY | PROVIDERS: PCP Internal Medicine; Visit Provider Surgery Vascular Surgery | DX: I71.4 Abdominal aortic aneurysm, without rupture (principal) | CPT/HCPCS: 99212 ==

== ENCOUNTER 2021-09-28 12:44 | Outpatient (REF) | payer MEDICARE, SELFPAY ==
[2021-09-28 14:23] LABS: Blood Urea Nitrogen 10 mg/dL (9-16); Estimated Glomerular Filt Rate 55
== END 2021-09-28 12:45 | disposition home or self-care (01) ==
LOC: HO.LAB 12:44
PROVIDERS: PCP Internal Medicine; Visit Provider Surgery Vascular Surgery
DX: I71.4 Abdominal aortic aneurysm, without rupture (principal)
CPT/HCPCS: 36415; 82565; 84520

== ENCOUNTER 2021-09-30 14:02 | Outpatient (REF) | payer MEDICARE, SELFPAY ==
--- NOTE | ~2021-09-30 | CT_ITS ---
EXAMINATION: CT ANGIOGRAM ABDOMEN AND PELVIS CLINICAL INFORMATION: Abdominal aortic aneurysm without rupture. COMPARISON: 04/29/2021 TECHNIQUE: Multiple axial images were obtained through the abdomen and pelvis following the administration of 65 mL of Omnipaque 350 intravenous contrast. Images were reviewed on a dedicated 3-D workstation. This CT examination was performed using dose optimization techniques as appropriate, variously including the following: *Automated exposure control *Adjustment of mA and/or kV according to patient size (this includes techniques or standardized protocols for targeted exams where dose is matched to indication/reason for exam; i.e. extremities or head) *Use of iterative reconstruction technique DLP: 224 mGy-cm FINDINGS: VASCULAR: There is atherosclerotic plaque in the descending thoracic aorta. The patient is now status post endovascular repair of the infrarenal abdominal aortic aneurysm. The excluded aneurysm sac measures approximately 4.7 x 3.9 cm. This is decreased from prior when it measured 5.2 x 3.7 cm measured at a similar level. Limited evaluation for endoleak as this was performed only with contrast, no clear evidence for endoleak. The iliac limbs are quite narrow but do appear to be patent. There are 2 separate short segment nonflow limiting dissections in the right common iliac artery (428 and 436/747). The external iliac arteries are patent. The common femoral arteries and visualized proximal SFA and profunda femoral arteries are patent. The fenestrated portion of the stent graft begins just below the takeoff of the celiac artery. The SMA is patent. The renal arteries are patent with left greater than right narrowing at the ostia. The kidneys do enhance symmetrically. NONVASCULAR: Lung Bases: Atelectasis in the lung bases. Liver, Gallbladder, and Biliary Tree: The liver is normal in size, shape, and attenuation. No focal hepatic lesion or biliary ductal dilatation is present. The gallbladder is unremarkable with no evidence of radiopaque gallstones, gallbladder wall thickening, or obvious pericholecystic inflammatory changes. Pancreas: Unremarkable Spleen: Unremarkable Adrenal Glands: Unremarkable Kidneys and Ureters: Kidneys enhance symmetrically. Right-sided renal cysts which do not require imaging followup. There is no hydronephrosis and no renal calculi. Bladder: Partially distended bladder is unremarkable. Gastrointestinal Tract: A few scattered colonic diverticuli without diverticulitis. No bowel obstruction. Normal appendix. Small hiatal hernia. Abdominal Wall: Postsurgical changes in the left inguinal region. Lymph Nodes: Normal Pelvic Viscera: The uterus and adnexa are unremarkable. Osseous Structures: Scoliotic curvature in the thoracolumbar spine. Degenerative changes. No destructive bony lesions. CT/CT angio abdomen pelvis IMPRESSION: Status post endovascular repair of the infrarenal abdominal aortic aneurysm. No clear evidence for endoleak. The excluded sac has decreased in size from the preprocedure exam. The iliac limbs are quite small but patent. There are 2 short segment, nonflow limiting focal dissections in the right common iliac artery distal to the iliac limb.
[2021-09-30] MEDS: iohexoL 350 MG/ML 100 ML INFUS..BTL IV (15:12)
== END 2021-09-30 14:03 | disposition home or self-care (01) ==
LOC: HO.CT 14:02
PROVIDERS: PCP Internal Medicine; Visit Provider Surgery Vascular Surgery
DX: I71.4 Abdominal aortic aneurysm, without rupture (principal)
CPT/HCPCS: 74174; Q9967

== ENCOUNTER → 2021-10-12 13:45 | Outpatient (BNVA) | payer MEDICARE, SELFPAY | PROVIDERS: PCP Internal Medicine; Visit Provider Surgery Vascular Surgery | DX: Z48.812 Encounter for surgical aftercare following surgery on the circulatory system (principal); I71.4 Abdominal aortic aneurysm, without rupture | CPT/HCPCS: 99212 ==

== ENCOUNTER 2022-04-07 11:19 | Outpatient (REF) | payer MEDICARE, SELFPAY ==
[2022-04-07 12:27] LABS: Blood Urea Nitrogen 13 mg/dL (9-16); Estimated Glomerular Filt Rate 46
== END 2022-04-07 11:20 | disposition home or self-care (01) ==
LOC: HO.LAB 11:19
PROVIDERS: PCP Internal Medicine; Visit Provider Surgery Vascular Surgery
DX: I71.4 Abdominal aortic aneurysm, without rupture (principal)
CPT/HCPCS: 36415; 82565; 84520

== ENCOUNTER 2022-04-18 09:22 | Outpatient (REF) | payer MEDICARE, SELFPAY ==
--- NOTE | ~2022-04-18 | CT_ITS ---
EXAMINATION: CT ANGIOGRAM ABDOMEN AND PELVIS CLINICAL INFORMATION: Abdominal aneurysm. Followup. COMPARISON: CT abdomen/pelvis 09/30/2021. TECHNIQUE: Multiple axial images were obtained through the abdomen and pelvis following the administration of 100 mL of Omnipaque 350 intravenous contrast. Images were reviewed on a dedicated 3-D workstation. This CT examination was performed using dose optimization techniques as appropriate, variously including the following: *Automated exposure control *Adjustment of mA and/or kV according to patient size (this includes techniques or standardized protocols for targeted exams where dose is matched to indication/reason for exam; i.e. extremities or head) *Use of iterative reconstruction technique DLP: 233 mGy-cm FINDINGS: VASCULAR: There is an aortic graft stent from the mid abdominal aorta to the mid common iliac arteries. There is a widely patent mid and distal abdominal aorta with minimal intimal thickening or circumferential thrombus within the stent margins. The common and external iliac arteries are widely patent but slightly small in caliber except for a known aortic dissection or stenosis in the right common iliac artery on sagittal image 98/10. A second area of probable small dissection is seen in mid right common iliac artery on axial image 427/9. The proximal abdominal aorta is of normal caliber. Origins of celiac artery is patent. The SMA is patent and arises from the proximal end of the stent. There is no endoleak seen. The outer lumen of the aorta is aneurysmal and measures 4.6 x 3.5 cm. Previous measurement was 4.7 x 3.9 cm. Bilateral renal arteries are patent. NONVASCULAR: Lung Bases: Minimal scarring or atelectatic changes are seen. The heart size is normal. Liver, Ducts and Gallbladder: The liver is homogeneous in density, normal size and contour. No focal lesion or intrahepatic ductal dilatation is seen. There are no radiopaque gallstones, wall thickening or pericholecystic fluid collection. Spleen: Unremarkable. Adrenal Glands: Unremarkable. Kidneys and Ureters: There are symmetrical bilateral kidney nephrograms without any focal lesion. There are right renal cysts. No radiopaque renal calculi or hydroureteronephrosis seen. The ureters are nondilated. Bladder: Unremarkable. GI Tract: A few scattered colonic diverticula without any mural thickening or fat stranding. There is scattered stool in colon without distention. The small bowel loops are normal caliber. The appendix is normal caliber. Abdominal Wall: Unremarkable. Lymph Nodes: No abnormal sized lymph nodes seen. Pelvis: The uterus is midline. There is no adnexal mass or free fluid. Osseous Structures: No aggressive lytic or sclerotic process seen. There is mild spondylosis. CT/CT angio abdomen pelvis IMPRESSION: Distal abdominal aortic aneurysm, stable with endovascular aortoiliac graft stent, stable. No endoleak seen. Mild probable small dissections or narrowing along the right common iliac artery are stable. The rest of the distal WINDOW DRAPER and external iliac artery are patent. Scattered colonic diverticulosis. Right renal cysts are stable. Fleischner guidelines were followed.
== END 2022-04-18 09:23 | disposition home or self-care (01) ==
LOC: HO.CT 09:22
PROVIDERS: PCP Internal Medicine; Visit Provider Surgery Vascular Surgery
DX: I71.4 Abdominal aortic aneurysm, without rupture (principal)
CPT/HCPCS: 74174

== ENCOUNTER → 2022-04-21 11:00 | Outpatient (BNVA) | payer MEDICARE, SELFPAY | PROVIDERS: PCP Internal Medicine; Visit Provider Surgery Vascular Surgery | DX: I71.4 Abdominal aortic aneurysm, without rupture (principal) | CPT/HCPCS: 99212 ==

== ENCOUNTER 2023-03-20 11:02 | Outpatient (REF) | payer MEDICARE, SELFPAY ==
[2023-03-20 12:41] LABS: Blood Urea Nitrogen 13 mg/dL (9-16); Estimated Glomerular Filt Rate 50
== END 2023-03-20 11:03 | disposition home or self-care (01) ==
LOC: HO.LAB 11:02
PROVIDERS: PCP Internal Medicine; Visit Provider Surgery Vascular Surgery
DX: I71.40 Abdominal aortic aneurysm, without rupture, unspecified (principal)
CPT/HCPCS: 36415; 82565; 84520

== ENCOUNTER 2023-04-03 10:31 | Outpatient (REF) | payer MEDICARE, SELFPAY ==
--- NOTE | ~2023-04-03 | CT_ITS ---
EXAMINATION: CT ANGIOGRAM ABDOMEN AND PELVIS CLINICAL INFORMATION: Aortic stent graft. COMPARISON: Prior CT angiograms of the abdomen and pelvis dated 04/18/2022, 09/30/2021 and 04/29/2021. TECHNIQUE: Multiple axial images were obtained through the abdomen and pelvis following the administration of 80 mL of Omnipaque 350 intravenous contrast. Images were reviewed on a dedicated 3-D workstation. This CT examination was performed using dose optimization techniques as appropriate, variously including the following: *Automated exposure control *Adjustment of mA and/or kV according to patient size (this includes techniques or standardized protocols for targeted exams where dose is matched to indication/reason for exam; i.e. extremities or head) *Use of iterative reconstruction technique DLP: 340 mGy-cm FINDINGS: VASCULAR FINDINGS: An aortobiiliac stent graft is again noted. Maximal aortic sac size in the transverse plane measures 4.7 x 3.2 cm, quite similar to the prior study when measurements are made by myself at 4.8 x 3.5 cm (6:330, compare prior 9:332). There is some high density seen around the sac which is probably related to calcification within thrombus or the wall of the aorta. The exam was not tailored for evaluation of an endoleak as noncontrast imaging and delayed imaging was not obtained. No obvious endoleak is seen. Again seen are [id number] dissections in the common iliac arteries, unchanged from prior. The external iliac arteries are free of significant disease. Common femoral arteries show mild calcific plaque. Femoral bifurcations are patent with patent proximal superficial femoral arteries and profunda femoris arteries. Some mild narrowing is present at the origin of the celiac. The SMA is patent. There is a mild stenosis at the origin of the left renal artery. The right renal artery has mild origin disease. NONVASCULAR FINDINGS: Lung Bases: Subpleural reticulation and bibasilar scarring is present along with some traction bronchiectasis (for example right lower lobe 6:112) suggesting fibrotic changes. No suspicious lung masses or pleural effusions are seen. Liver, Gallbladder, and Biliary Tree: The liver is normal in size, shape, and attenuation. No focal hepatic lesion or biliary ductal dilatation is present. The gallbladder is unremarkable with no evidence of radiopaque gallstones, gallbladder wall thickening, or obvious pericholecystic inflammatory changes. Pancreas: Unremarkable. Spleen: Unremarkable. Adrenal Glands: Unremarkable. Kidneys and Ureters: The kidneys are normal in size, shape, and attenuation. No hydronephrosis, hydroureter, or calculi seen. A benign right renal 2.9 cm Bosniak class I renal cyst is noted along with a few smaller cysts which requires no additional imaging or follow up. No solid renal masses are seen. Bladder: Unremarkable. There is a 6 mm rounded calcification in the peritoneal cavity just above the superior aspect of the bladder which is of no clinical significance and may represent an old calcified avulsed epiploic appendage. Gastrointestinal Tract: The small and large bowel are unremarkable aside from scattered colonic diverticula without diverticulitis. The appendix is unremarkable. Abdominal Wall: No significant hernia is appreciated. Lymph Nodes: No retroperitoneal lymphadenopathy. Bilateral prominent inguinal lymph nodes are present, left greater than right. Pelvic Viscera: The uterus and adnexa are unremarkable. Osseous Structures: Degenerative changes are present in the spine most marked at L1-L2 and L5-S1. No bony destructive lesions. CT/CT angio abdomen pelvis IMPRESSION: Aortobiiliac stent graft with stable sac size. No evidence of an endoleak although the exam was not tailored for evaluation of an endoleak. Stable common iliac artery dissections. Other incidental findings as described above. Fleischner guidelines were followed.
== END 2023-04-03 10:32 | disposition home or self-care (01) ==
LOC: HO.CT 10:31
PROVIDERS: PCP Internal Medicine; Visit Provider Surgery Vascular Surgery
DX: I71.40 Abdominal aortic aneurysm, without rupture, unspecified (principal)
CPT/HCPCS: 74174; Q9967

== ENCOUNTER 2023-04-13 14:03 | Outpatient (AMB) | payer MEDICARE, SELFPAY ==
[2023-04-13 14:05] VITALS: BMI 24.7
--- NOTE | 2023-04-13 14:05 | MHC.OFFVIS ---
Intake Vital Signs 04/13/23 14:05 Height 5 ft 4 in Weight 144 lb BMI 24.7 Intake Visit Reasons: Follow UP CT 04/03 Intake Note: 1 year follow up AAA s/p CTA Abd/pelvis 04/03/23 w/ Hx of AAA repair 06/07/2021. Pt has no complaints Accompanied by: Self / Same As Patient Allergies No Known Allergies Allergy (Verified 04/13/23 14:23) HPI Follow UP CT 04/03 HPI Details Very pleasant 72-year-old female nearly 2 years out status post aortic endograft. She reports she is doing relatively well. From an aortic standpoint she has no complaints. She does have some lower back discomfort which she is working through. She has prior spinal injections with has provided minimal relief. She now presents for follow-up with surveillance CT scan. [facility] Medical History Arthritis Back pain Hx of cataract Hx of renal calculi Mild heartburn Subclavian artery stenosis, left Surgical History H/O tubal ligation Hx of colonoscopy Hx of lithotripsy Status post insertion of iliac artery stent Family History Father No problems noted. Mother No problems noted. Social History Household Members: Children Household Members Other:: grandaughter 22 yrs old Housing: House Are you a primary career specialist to a significant other at home: No Do you presently have visiting nurse or other home services: No Patient Tobacco Use Status: Current everyday Tobacco user Tobacco use type: Smokeless Tobacco Cigarettes Per Day: 4 e-Cigarette/Vaping Use: Currently Using service: No Current occupational status: retired Review of Systems Const All systems reviewed & are unremarkable except as noted in HPI and below Reports no additional complaints ENT Reports Normal hearing present Card Denies chest pain, Denies chest pain at rest, Denies chest pain with activity and Denies pedal edema Resp Denies cough GI Denies abdominal pain Musc Denies abnormal gait, Denies muscle cramps and Denies radiating pain into limb Skin/Breast Denies skin ulcer and Denies wounds Neuro Reports Normal hearing present and Denies abnormal gait Psych Reports no additional complaints Physical Exam Vital Signs: BMI result Body Mass Index 24.7 Const General: cooperative, healthy appearing and comfortable Orientation/consciousness: oriented to person, oriented to place and oriented to time HEENT Head: Yes normal to inspection Neck Neck: Yes normal visual inspection Carotids: no bruits Chest Chest palpation & inspection: normal inspection of the chest Resp Effort & Inspection: normal respiratory effort and able to speak in complete sentences Auscultation: clear to auscultation bilaterally, no crackles, no rales, no rhonchi and no wheezes Cardio Rate: regular rate Rhythm: regular rhythm Heart sounds: S1 normal heart sound present and S2 normal heart sound present Bruits: no carotid bruits Peripheral pulses: Peripheral pulses 2+ throughout GI Inspection: Yes normal to inspection Skin Wounds: no wounds Hair: normal Neuro General: oriented to person, oriented to place and oriented to time Cranial nerves: Yes CN's II-XII intact bilaterally and Yes Normal hearing present Cognition (Neuro): normal cognition Motor exam (neuro): 5/5 motor strength present throughout Extrem Other: venous exam: No significant superficial varicosities or spider telangiectasias, minimal edema General: No clubbing, No cyanosis and No edema Psych Appearance: grossly normal Mental Status: mental status grossly normal Speech and movement: Normal speech and movement present Results Reviewed Results Reviewed: CT angiogram dated 04/03/2023 demonstrates stable aortic endograft with maximal dimension of 4.7 x 3.2. No obvious endoleak noted. Written report and images were reviewed. Assessment & Plan Assessment & Plan (1) AAA (abdominal aortic aneurysm) without rupture: Comment: 06/07/2021- endovascular aortic aneurysm repair with Endologix AFX-2 device Code(s): I71.4 - Abdominal aortic aneurysm, without rupture Plan: In short patient has stable aortic endograft. We have discussed the pathophysiology of aortic aneurysms and the risk of ruptures. the patient is scheduled for surveillance follow-up in approximately 1 year[address] time with surveillance CT scan. Thank you for allowing us to participate in the care of this patient Orders: Orders Blood Urea Nitrogen 364 Days I71.4 - Abdominal aortic aneurysm, without rupture Creatinine 364 Days I71.4 - Abdominal aortic aneurysm, without rupture CT angio abdomen pelvis 364 Days I71.4 - Abdominal aortic aneurysm, without rupture Coding Level of Care Code Est Pt Level 4 (75712) Diagnoses AAA (abdominal aortic aneurysm) without rupture I71.4
== END 2023-04-13 14:35 | disposition home or self-care (01) ==
PROVIDERS: PCP Internal Medicine; Visit Provider Surgery Vascular Surgery
DX: I71.40 Abdominal aortic aneurysm, without rupture, unspecified (principal)
CPT/HCPCS: 99213

== ENCOUNTER → 2023-04-13 14:03 | Outpatient (BNVA) | payer MEDICARE, SELFPAY | PROVIDERS: PCP Internal Medicine; Visit Provider Surgery Vascular Surgery ==

== ENCOUNTER 2024-04-02 10:42 | Outpatient (REF) | payer MEDICARE, SELFPAY ==
[2024-04-02 12:05] LABS: Blood Urea Nitrogen 11 mg/dL (9-16); Estimated Glomerular Filt Rate 52
== END 2024-04-02 10:43 | disposition home or self-care (01) ==
LOC: HO.LAB 10:42
PROVIDERS: PCP Internal Medicine; Visit Provider Surgery Vascular Surgery
DX: I71.40 Abdominal aortic aneurysm, without rupture, unspecified (principal)
CPT/HCPCS: 36415; 82565; 84520

== ENCOUNTER 2024-04-11 10:56 | Outpatient (REF) | payer MEDICARE, SELFPAY ==
--- NOTE | ~2024-04-11 | CT_ITS ---
EXAMINATION: CT ANGIOGRAM ABDOMEN AND PELVIS CLINICAL INFORMATION: Abdominal aortic aneurysm COMPARISON: CTA abdomen pelvis on 03/31/2023 TECHNIQUE: Multiple axial images were obtained through the abdomen and pelvis following the administration of 80 mL of Omnipaque 350 intravenous contrast. Images were reviewed on a dedicated 3-D workstation. This CT examination was performed using dose optimization techniques as appropriate, variously including the following: *Automated exposure control *Adjustment of mA and/or kV according to patient size (this includes techniques or standardized protocols for targeted exams where dose is matched to indication/reason for exam; i.e. extremities or head) *Use of iterative reconstruction technique DLP: 603 mGy-cm FINDINGS: ABDOMINAL AORTA: There is a patent infrarenal aortic biiliac endograft. The igiugig aneurysm sac is stable in size and measures up to 4.5 x 3.4 cm, stable from prior exams. RIGHT ILIAC ARTERY: The iliac limits patent. There is moderate atherosclerotic disease.. LEFT ILIAC ARTERY: The iliac limb is patent. There is moderate atherosclerotic disease.. CELIOMESENTERIC ARTERIES: Mild stenosis of the celiac artery and SMA origins. The JAMIR is not well visualized.. RENAL ARTERIES: There is mild atherosclerotic disease at the origin of the right renal artery, otherwise the renal arteries are patent.. NONVASCULAR: Lung Bases: Mild subpleural reticulation with basilar predominance. Liver, Gallbladder and Biliary Tree: The liver is normal in size, shape, and attenuation. No focal hepatic lesion or biliary ductal dilatation is present. The gallbladder is unremarkable with no evidence of radiopaque gallstones, gallbladder wall thickening, or obvious pericholecystic inflammatory changes. Pancreas: Unremarkable. Spleen: Unremarkable. Adrenal Glands: Unremarkable. Kidneys and Ureters: The kidneys are normal in size, shape, and attenuation. No hydronephrosis, hydroureter, or calculi seen. No perinephric stranding. There are 2 right renal simple cysts which do not require follow-up. Bladder: Unremarkable. Gastrointestinal Tract: The small and large bowel are unremarkable. Colonic diverticulosis is noted. Abdominal Wall: No significant hernia is appreciated. Lymph Nodes: Normal. Pelvic Viscera: The uterus and adnexa are unremarkable. Osseous Structures: Degenerative disease of the lumbar spine. CT/CT angio abdomen pelvis IMPRESSION: Patent aortic biiliac endograft. Stable size of the igiugig aneurysm sac. No evidence of endoleak. Fleischner guidelines were followed.
[2024-04-11] MEDS: iohexoL 350 MG/ML 100 ML INFUS..BTL 80 ML IV (11:15)
== END 2024-04-11 10:57 | disposition home or self-care (01) ==
LOC: HO.CT 10:56
PROVIDERS: Visit Provider Surgery Vascular Surgery
DX: I71.40 Abdominal aortic aneurysm, without rupture, unspecified (principal)
CPT/HCPCS: 74174; Q9967

== ENCOUNTER 2024-05-14 12:51 | Outpatient (AMB) | payer MEDICARE, SELFPAY ==
--- NOTE | 2024-05-14 12:55 | A.OFFVIS_ITS ---
Vital Signs 05/14/24 12:57 Height 5 ft 4 in Weight 139 lb BMI 23.9 BP 118/72 Blood Pressure Location Rt brachial Position Sitting Intake Visit Reasons: Review of CT Scan to check AAA repair of 06/14/21 Intake Note: Pt presents to the office today for a CT review to check AAA repair 06/14/21. Pt states she is overall feeling well and denies any concerns at this time. Allergies No Known Allergies Allergy (Verified 05/14/24 12:58) HPI HPI Review of CT Scan to check AAA repair of 06/14/21: Details: Very pleasant 73-year-old female presents for routine surveillance follow-up regarding endovascular aortic aneurysm repair. This was done 3 years prior. She has had no interval issues. She now presents for routine surveillance follow-up with CT scan. [facility] Medical History Arthritis Back pain Hx of cataract Hx of renal calculi Mild heartburn Subclavian artery stenosis, left Surgical History H/O tubal ligation Hx of colonoscopy Hx of lithotripsy Status post insertion of iliac artery stent Family History Father No problems noted. Mother No problems noted. Social History Household Members: Children Household Members Other:: [facility] 21 yrs old Housing: House Are you a primary child care development specialist to a significant other at home: No Do you presently have visiting nurse or other home services: No Comment: aware of trip hazard Patient Tobacco Use Status: Current everyday Tobacco user Tobacco use type: Smokeless Tobacco Cigarettes Per Day: 4 e-Cigarette/Vaping Use: Currently Using service: No Current occupational status: retired Review of Systems Const All systems reviewed & are unremarkable except as noted in HPI and below Reports no additional complaints ENT Reports Normal hearing present Card Denies chest pain, Denies chest pain at rest, Denies chest pain with activity and Denies pedal edema Resp Denies cough GI Denies abdominal pain Musc Denies abnormal gait, Denies muscle cramps and Denies radiating pain into limb Skin/Breast Denies skin ulcer and Denies wounds Neuro Reports Normal hearing present and Denies abnormal gait Psych Reports no additional complaints Physical Exam Vital Signs: Last Vital Signs BP 118/72 05/14/24 12:57 BMI result Body Mass Index 23.9 Const General: cooperative, healthy appearing and comfortable Orientation/consciousness: oriented to person, oriented to place and oriented to time HEENT Head: Yes normal to inspection Neck Neck: Yes normal visual inspection Carotids: no bruits Chest Chest palpation & inspection: normal inspection of the chest Resp Effort & Inspection: normal respiratory effort and able to speak in complete sentences Auscultation: clear to auscultation bilaterally, no crackles, no rales, no rhonchi and no wheezes Cardio Rate: regular rate Rhythm: regular rhythm Heart sounds: S1 normal heart sound present and S2 normal heart sound present Bruits: no carotid bruits Peripheral pulses: Peripheral pulses 2+ throughout GI Inspection: Yes normal to inspection Skin Wounds: no wounds Hair: normal Neuro General: oriented to person, oriented to place and oriented to time Cranial nerves: Yes CN's II-XII intact bilaterally and Yes Normal hearing present Cognition (Neuro): normal cognition Motor exam (neuro): 5/5 motor strength present throughout Extrem Other: venous exam: No significant superficial varicosities or spider telangiectasias, minimal edema General: No clubbing, No cyanosis and No edema Psych Appearance: grossly normal Mental Status: mental status grossly normal Speech and movement: Normal speech and movement present Results Reviewed Results Reviewed: CT scan dated 04/11/2024 demonstrates stable aorta at 4.5 cm with no evidence of endoleak. Written report and images were reviewed. Assessment & Plan Assessment & Plan (1) AAA (abdominal aortic aneurysm) without rupture: Comment: 06/07/2021- endovascular aortic aneurysm repair with Endologix AFX-2 device Code(s): I71.4 - Abdominal aortic aneurysm, without rupture Category: Medical Qualifiers: Abdominal aorta location: infrarenal aorta Qualified Code(s): I71.43 - Infrarenal abdominal aortic aneurysm, without rupture Plan: In short patient has stable aortic endograft on CT. We have discussed the pathophysiology of aortic aneurysms and the risk of ruptures. We have discussed rupture risk based on size. In addition we have discussed conservative measures and risk factor modification for prevention of increase in size of the aneurysm. the patient is scheduled for surveillance follow-up in approximately 1 year. Thank you for allowing us to participate in the care of this patient Please note a longitudinal relationship has been created with the patient and we have been following and surveillance this chronic condition. Orders: Orders CT angio abdomen pelvis 1 Year I71.43 - Infrarenal abdominal aortic aneurysm, without rupture Blood Urea Nitrogen 1 Year I71.43 - Infrarenal abdominal aortic aneurysm, without rupture Creatinine 1 Year I71.43 - Infrarenal abdominal aortic aneurysm, without rupture Coding Level of Care Code Est Pt Level 4 (02051) Complex EM visit Add On G2211 Diagnoses Infrarenal abdominal aortic aneurysm (AAA) without rupture I71.43 Abdominal aorta location: infrarenal aorta
[2024-05-14 12:57] VITALS: BP 118/72; BMI 23.9
== END 2024-05-14 13:21 | disposition home or self-care (01) ==
PROVIDERS: PCP Internal Medicine; Visit Provider Surgery Vascular Surgery
DX: I71.43 Infrarenal abdominal aortic aneurysm, without rupture (principal)
CPT/HCPCS: 99214; G2211

== ENCOUNTER → 2024-05-14 12:51 | Outpatient (BNVA) | payer MEDICARE, SELFPAY | PROVIDERS: PCP Internal Medicine; Visit Provider Surgery Vascular Surgery | DX: I71.43 Infrarenal abdominal aortic aneurysm, without rupture (principal) | CPT/HCPCS: 99212 ==

== ENCOUNTER 2025-05-07 13:22 | Outpatient (REF) | payer MEDICARE, SELFPAY ==
--- OUTSIDE RECORDS SUMMARY | 2025-05-07 13:48 | XMS_ITS | Clinical Summary ---
Author Organization [facility] ity Address [address] [place] [address] Care Team Providers Care Back Shoe Worker Name Role Phone Unavailable Primary Care Provider Unavailabl e Social History Tobacco Use Types Packs/Day Years Used Date Smoking Tobacco: Never Assessed Comments Unknown Sex and Gender Information Value Date Recorded Sex Assigned at Not on file Legal Sex Female 6:32 PM EST Gender Identity Not on file Sexual Orientation Not on file Plan of Treatment Health Maintenance Due Date Last Done Comments DTaP,Tdap,and Td Vaccines (1 - Tdap) 1968 Pneumococcal Vaccine: 50+ Ye ars (1 of 1 - PCV) 1999 Zoster Vaccines (1 of 2) 1999 COVID-19 Vaccine ( - 2023-2 5 season) 2024 RSV Immunization Adult Patie nts (1 - 1-dose 75+ series) 2024 Depression Screening 09/25/2024 Influenza Vaccine (#1) 2025 HIB Vaccines Aged Out No longer eligi ble based on patient's age to complete this topic HPV Vaccines Aged Out No longer eligi ble based on patient's age to complete this topic Hepatitis A Vaccines Aged Out No long er eligible based on patient's age to complete this topic Hepatitis B Vaccines Aged Out No long er eligible based on patient's age to complete this topic IPV Vaccines Aged Out No longer eligi ble based on patient's age to complete this topic MMR Vaccines Aged Out No longer eligi ble based on patient's age to complete this topic Meningococcal ACWY Vaccine Aged Out N o longer eligible based on patient's age to complete this topic Meningococcal B Vaccine Aged Out No l onger eligible based on patient's age to complete this topic RSV Immunization Patients Un jagjit 20 months Aged Out No longer eligible b ased on patient's age to complete this topic Varicella Vaccines Aged Out No longer eligible based on patient's age to complete this topic
[2025-05-07 14:45] LABS: Blood Urea Nitrogen 15 mg/dL (9-16); Estimated Glomerular Filt Rate > 60
== END 2025-05-07 13:23 | disposition home or self-care (01) ==
LOC: HO.LAB 13:22
PROVIDERS: PCP Internal Medicine; Visit Provider Surgery Vascular Surgery
DX: I71.43 Infrarenal abdominal aortic aneurysm, without rupture (principal)
CPT/HCPCS: 36415; 82565; 84520

== ENCOUNTER 2025-05-13 09:01 | Outpatient (REF) | payer MEDICARE, SELFPAY ==
--- NOTE | ~2025-05-13 | CT_ITS ---
CLINICAL HISTORY: I71.43 - Infrarenal abdominal aortic aneurysm, without rupture --- Additional Notes or Special Instructions: Aortic endograft CT angiogram of the abdomen and pelvis. Multiplanar MIPS were obtained. Comparison 04/11/2024. Findings: An aortic stent graft is in place. Maximal diameter of the aorta is 4.1 cm. This is mildly decreased from previous. There is prominent multifocal calcified atherosclerotic plaque. No definite endoleak is seen. 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 There is moderate to severe narrowing of the origin of the right renal artery. There is high-grade narrowing of the origin of the left renal artery. There is moderate to severe narrowing of the left common iliac artery. Impression: No endoleak is identified. 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 This document has been electronically signed by: Abhilash Rangel MD on 05/14/2025 20:48:18
--- OUTSIDE RECORDS SUMMARY | 2025-05-13 09:54 | XMS_ITS | Clinical Summary ---
Author Organization [facility] ity Address [address] [place] [address] Care Team Providers Care Rn Urgent Care Name Role Phone Unavailable Primary Care Provider [...]
[2025-05-13] MEDS: iohexoL 350 MG/ML 100 ML INFUS..BTL IV (09:59)
== END 2025-05-13 09:02 | disposition home or self-care (01) ==
LOC: HO.CT 09:01
PROVIDERS: PCP Internal Medicine; Visit Provider Surgery Vascular Surgery
DX: I71.43 Infrarenal abdominal aortic aneurysm, without rupture (principal)
CPT/HCPCS: 74174; Q9967

== ENCOUNTER → 2025-05-13 09:03 | Outpatient (BNV) | payer MEDICARE, SELFPAY | PROVIDERS: PCP Internal Medicine; Visit Provider Radiology Diagnostic Radiology | DX: I71.43 Infrarenal abdominal aortic aneurysm, without rupture (principal) | CPT/HCPCS: 74174 ==

== ENCOUNTER 2025-05-15 08:58 | Outpatient (AMB) | payer MEDICARE, SELFPAY ==
--- NOTE | 2025-05-15 09:06 | A.OFFVIS_ITS ---
Intake Visit Reasons: 1y follow up s/p CTA Abd/Pelvis 05/13/25 Intake Note: Patient presents for 1 year follow up s/p CTA Abd/Pelvis performed on 05/13/25. She states she has right sided back pain. Accompanied by: Self / Same As Patient Allergies No Known Allergies Allergy (Verified 05/15/25 09:07) HPI HPI 1y follow up s/p CTA Abd/Pelvis 05/13/25: Details: Very pleasant 74-year-old female presents for annual surveillance regarding aortic aneurysmal disease. She had undergone endovascular aneurysm repair nearly 4 years prior. She has had no postprocedure issues. In general appears to be doing relatively well. She now presents for routine follow-up with CT scan. [facility] Medical History Hx of cataract Arthritis Back pain Hx of renal calculi Mild heartburn Subclavian artery stenosis, left Surgical History Hx of lithotripsy Hx of colonoscopy H/O tubal ligation Status post insertion of iliac artery stent Family History Father No problems noted. Mother No problems noted. Social History Household Members: Children Household Members Other:: roger 22 yrs old Housing: House Are you a primary home care and home health aides teacher to a significant other at home: No Do you presently have visiting nurse or other home services: No Comment: aware of trip hazard Patient Tobacco Use Status: Current everyday Tobacco user Tobacco use type: Smokeless Tobacco Cigarettes Per Day: 4 e-Cigarette/Vaping Use: Currently Using service: No Current occupational status: retired Review of Systems Const All systems reviewed & are unremarkable except as noted in HPI and below Reports no additional complaints ENT Reports Normal hearing present Card Denies chest pain, Denies chest pain at rest, Denies chest pain with activity and Denies pedal edema Resp Denies cough GI Denies abdominal pain Musc Denies abnormal gait, Denies muscle cramps and Denies radiating pain into limb Skin/Breast Denies skin ulcer and Denies wounds Neuro Reports Normal hearing present and Denies abnormal gait Psych Reports no additional complaints Physical Exam Const General: cooperative, healthy appearing and comfortable Orientation/consciousness: oriented to person, oriented to place and oriented to time HEENT Head: Yes normal to inspection Neck Neck: Yes normal visual inspection Carotids: no bruits Chest Chest palpation & inspection: normal inspection of the chest Resp Effort & Inspection: normal respiratory effort and able to speak in complete sentences Auscultation: clear to auscultation bilaterally, no crackles, no rales, no rhonchi and no wheezes Cardio Rate: regular rate Rhythm: regular rhythm Heart sounds: S1 normal heart sound present and S2 normal heart sound present Bruits: no carotid bruits Peripheral pulses: Peripheral pulses 2+ throughout GI Inspection: Yes normal to inspection Skin Wounds: no wounds Hair: normal Neuro General: oriented to person, oriented to place and oriented to time Cranial nerves: Yes CN's II-XII intact bilaterally and Yes Normal hearing present Cognition (Neuro): normal cognition Motor exam (neuro): 5/5 motor strength present throughout Extrem Other: venous exam: No significant superficial varicosities or spider telangiectasias, minimal edema General: No clubbing, No cyanosis and No edema Psych Appearance: grossly normal Mental Status: mental status grossly normal Speech and movement: Normal speech and movement present Results Reviewed Results Reviewed: CT angiogram dated 05/13/2025 demonstrates appropriately placed endograft with no evidence of endoleak. Concerning for stenosis in the left common iliac but does not appear to be flow-limiting. Written report and images were reviewed Assessment & Plan Assessment & Plan (1) AAA (abdominal aortic aneurysm) without rupture: Comment: 06/07/2021- endovascular aortic aneurysm repair with Endologix AFX-2 device Code(s): I71.4 - Abdominal aortic aneurysm, without rupture Category: Medical Qualifiers: Abdominal aorta location: infrarenal aorta Qualified Code(s): I71.43 - Infrarenal abdominal aortic aneurysm, without rupture Plan: In short patient has stable aortic endograft. We have discussed the pathophysiology of aortic aneurysms and the risk of ruptures. We have discussed rupture risk based on size. In addition we have discussed conservative measures and risk factor modification for prevention of increase in size of the aneurysm. the patient is scheduled for surveillance follow-up in approximately 1 year with CAT scan. Thank you for allowing us to participate in the care of this patient Orders: Orders Creatinine 1 Year I71.43 - Infrarenal abdominal aortic aneurysm, without rupture CT angio abdomen pelvis 1 Year I71.43 - Infrarenal abdominal aortic aneurysm, without rupture Blood Urea Nitrogen 1 Year I71.43 - Infrarenal abdominal aortic aneurysm, without rupture Coding Level of Care Code Est Pt Level 4 (43945) Complex EM visit Add On G2211 Diagnoses Infrarenal abdominal aortic aneurysm (AAA) without rupture I71.43 Abdominal aorta location: infrarenal aorta
--- OUTSIDE RECORDS SUMMARY | 2025-05-15 09:58 | XMS_ITS | Clinical Summary ---
Author Organization [facility] ity Address [address] [place] [address] Care Team Providers Care Seed Cleaner Name Role Phone Unavailable Primary Care Provider [...]
== END 2025-05-15 09:38 | disposition home or self-care (01) ==
LOC: HO.HVS 08:58
PROVIDERS: PCP Internal Medicine; Visit Provider Surgery Vascular Surgery
DX: I71.43 Infrarenal abdominal aortic aneurysm, without rupture (principal)
CPT/HCPCS: 99214; G2211

== ENCOUNTER → 2025-05-15 08:58 | Outpatient (BNVA) | payer MEDICARE, SELFPAY | PROVIDERS: PCP Internal Medicine; Visit Provider Surgery Vascular Surgery | DX: I71.43 Infrarenal abdominal aortic aneurysm, without rupture (principal) | CPT/HCPCS: 99212 ==